=== PATIENT | male | born 1965 | race Caucasian/White ===

== ENCOUNTER 2017-03-30 17:22 | Emergency (ER) | payer BC, OTHER ==
[~2017-03-30] VITALS: Ht 157.5 cm; Wt 58.1 kg
[2017-03-30 17:30] VITALS: BP 130/64
[2017-03-30] MEDS ORDERED: MORPHINE SULFATE 2 MG/ML DISP.SYRIN. ONE (17:38)
[2017-03-30] MEDS ORDERED: MORPHINE SULFATE 4 MG/ML DISP.SYRIN. ONE (17:50)
[2017-03-30] MEDS ORDERED: fentaNYL PF 100 MCG/2 ML VIAL ONE (18:17)
[2017-03-30] MEDS ORDERED: DIPHTH,PERTUSS(ACELL),TET TOX 0.5 ML DISP.SYRIN. VAX IM ONE (19:00)
--- NOTE | 2017-03-30 19:21 | PHYS DOC ---
General Chief Complaint: UPPER EXTREMITY INJURY Stated Complaint: HAND/ARM INJURY Time Seen by MD: 18:52 Source: patient Exam Limitations: no limitations Problems: History of Present Illness Initial Comments Patient is a 51-year-old male who comes to the ED complaining of left upper extremity injury. Patient states that prior to arrival he was at home working on a car. 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 He says as he was tearing up a tire it exploded and the rim hit him at the left forearm and hand. He has moderate to severe left forearm and hand discomfort with movement symptoms are controlled at rest. He has no open lacerations but scattered abrasions are noted tetanus status is unknown and will be updated today. He has full range of motion of the left upper extremity with no numbness tingling weakness or radiating symptoms and although there is forearm swelling no suspicion of compartment syndrome at this time. No pre- arrival treatment patient did not require analgesia prior to discharge from the department. Onset: just prior to arrival Severity: moderate Pain/Injury Location: left forearm, left wrist, left hand, left 3rd finger Method of Injury: direct blow Modifying Factors: worse with jarring, worse with movement, improves with rest Allergies: Coded Allergies: Penicillins (Verified Allergy, Intermediate, 03/30/17) Past Medical History Medical History: no pertinent history Surgical History: no surgical history Social History Smoker: non-smoker Alcohol: none Drugs: none Review of Systems Constitutional: denies chills, denies diaphoresis, denies fever Respiratory: denies cough, denies shortness of breath Cardiovascular: denies chest pain, denies palpitations Gastrointestinal: denies abdominal pain, denies nausea Genitourinary: denies frequency, denies hematuria Musculoskeletal: see HPI Skin: see HPI Psychiatric/Neurological: see HPI Physical Exam General Appearance: WD/WN, no apparent distress HEENT: PERRL/EOMI, normal ENT inspection Neck: non-tender, supple Cardiovascular/Respiratory: normal peripheral pulses, no respiratory distress Back: no CVA tenderness, no vertebral tenderness Shoulder: normal inspection, non-tender, no evidence of injury Elbow/Forearm: pain, soft tissue tenderness, swelling (there is a moderate sized hematoma at the distal aspect of the anterior left forearm, tenderness is noted and pulses distally as well as capillary refill are normal. There is no numbness or tingling over the hematoma and no signs of compartment syndrome. No bony tenderness no skin breaks) Wrist: soft tissue tenderness (generalized wrist tenderness without focal bony tenderness no snuffbox tenderness range of motion is normal) Hand: nail injury (mild third digit subungual hematoma which causes the patient no discomfort), soft tissue tenderness (there are scattered abrasions at the left hand and fingers, there are no gaping wounds there is no active bleeding or bruising. Soft tissue swelling and tenderness noted at the third digit there is no palpable deformity the ligaments and tendons are intact the extremity is neurovascularly intact.) Neurologic/Tendon: normal sensation, normal motor functions, normal tendon functions, responds to pain, no evidence tendon injury Psychiatric: alert, oriented x 3 Skin: warm/dry (left hand abrasions as above) Orders, Labs, Meds Left hand, wrist, and forearm: No acute osseous abnormality. Studies interpreted by Dr. Worrell. Left fingers: Questionable third digit nondisplaced tuft fracture. Interpreted by Dr. Worrell. Tetanus updated the patient denied any new or progressive symptoms throughout the ED course. Although he did not require pain medications in the department he did ask for some to have at home as needed. He expressed agreement and understanding with the treatment plan and follow-up. Departure Time of Disposition: 19:20 Disposition: 01 HOME, SELF-CARE Diagnosis: L forearm contusion, L 4th finger contusion/abrasi Condition: STABLE Patient Instructions: Contusion, [id number], RICE - Routine Care for Injuries , [id number], VIS, Tetanus, Diphtheria, and Pertussis (Tdap) - CDC Additional Instructions: Please review the patient education materials given by ED staff. RICE, see handout. Off work thru 04/02. OTC tylenol/ibuprofen as needed. No use left arm until doctor follow up. Keep arm elevated and ice it aggressively the first 24 hours, 15-20 minutes every 3-4 hours. Wear metal finger splint until doctor follow up. Wash abrasions twice daily with soap and warm water to prevent infection. Follow up Friday with your doctor for recheck and further activity restriction modification. Return to ED with new or changing symptoms. SUKHDEEP WORRELL DO Mar 30, 2017 19:21
[2017-03-30] MEDS ORDERED: CLINDAMYCIN HCL 150 MG CAPSULE PO ONE (19:30)
[2017-03-30] MEDS ORDERED: HYDROcodone/APAP 10/325 1 TAB TABLET PO ONE (20:00)
[2017-03-30] MEDS ORDERED: ONDANSETRON ODT 4 MG TAB.RAPDIS PO ONE (20:00)
--- NOTE | 2017-03-31 07:41 | RAD ---
EXAM: 1. Left hand 3 views. 2. Left 4th finger, 3 views. 3. Left wrist 3 views. 4. Left forearm 2 views. HISTORY: Crush injury. COMPARISON: None. FINDINGS: Soft tissue swelling is noted along the 4th and 5th digits. No displaced fracture is identified. No fractures are identified are appreciated throughout the remainder of the hand. Clinodactyly is noted along the 5th distal interphalangeal joint. Other joint spaces and alignment are maintained. There is a tiny ossicle along the radial aspect of the trapezium suggesting a small chip fracture versus a loose body. Positive ulnar variance is noted. There is soft tissue swelling along the volar aspect of the forearm. No fractures are seen more proximally. IMPRESSION: 1. No displaced fracture within the hand or fingers. Soft tissue swelling. 2. Questionable small chip fracture versus tiny loose body along the radial aspect of the trapezium. 3. Soft tissue swelling along the volar forearm.
== END 2017-03-30 20:00 | disposition home or self-care (01) ==
LOC: ER 17:22
DX: S50.12XA Contusion of left forearm, initial encounter (principal); S60.042A Contusion of left ring finger without damage to nail, initial encounter; Z88.0 Allergy status to penicillin; W22.8XXA Striking against or struck by other objects, initial encounter; Y93.89 Activity, other specified; Y99.8 Other external cause status; Y92.89 Other specified places as the place of occurrence of the external cause
CPT/HCPCS: 29130; 73090; 73110; 73130; 73140; 90471; 90715; 99284; Q0162